=== PATIENT | female | born 1975 | race Caucasian/White ===

== ENCOUNTER 2019-12-02 19:20 | Emergency (ER) | payer OTHER, SELFPAY ==
[~2019-12-02] VITALS: Ht 157.5 cm; Wt 63.2 kg
[2019-12-02] MEDS ORDERED: PRED10TA2 (19:31)
[2019-12-02] MEDS ORDERED: DOXY100C37 (19:31)
[2019-12-02 20:16] LABS: BASO % 0.2 % (0.0-1.0); EOS % 0.1 % (0.0-3.0); HEMATOCRIT 38.6 % (36.0-47.0); HEMOGLOBIN 12.1 g/dl (12.0-15.5); LYMPH # 0.8 10^3/uL (1.5-5.0); LYMPH % 7.9 % (24.0-44.0); MEAN CORPUSCULAR HEMOGLOBIN 26.7 pg (27.0-33.0); MEAN CORPUSCULAR HGB CONC 31.3 g/dl (32.0-36.5); MEAN CORPUSCULAR VOLUME 85.2 fl (80.0-96.0); MONO # 0.3 10^3/uL (0.0-0.8); NEUTROPHILS % 88.5 % (36.0-66.0); PLATELET COUNT, AUTOMATED 428 10^3/uL (150-450); RED BLOOD COUNT 4.53 10^6/uL (4.00-5.40); WHITE BLOOD COUNT 10.1 10^3/uL (4.0-10.0)
[2019-12-02 20:37] LABS: BLOOD UREA NITROGEN 10 MG/DL (7-18); CALCIUM LEVEL 9.9 MG/DL (8.5-10.1); CARBON DIOXIDE LEVEL 27 MEQ/L (21-32); CHLORIDE LEVEL 103 MEQ/L (98-107); CREATININE FOR GFR 0.56 MG/DL (0.55-1.30); GLOMERULAR FILTRATION RATE > 60.0 (>58); GLUCOSE, FASTING 114 MG/DL (70-100); POTASSIUM SERUM 4.2 MEQ/L (3.5-5.1); SODIUM LEVEL 137 MEQ/L (136-145)
[2019-12-02 20:39] LABS: HCG, SERUM QUALITATIVE NEGATIVE (NEGATIVE)
[2019-12-02 20:41] LABS: ALBUMIN 4.6 GM/DL (3.2-5.2); BILIRUBIN,DIRECT 0.1 MG/DL (0.0-0.2); BILIRUBIN,TOTAL 0.4 MG/DL (0.2-1.0); TOTAL PROTEIN 8.3 GM/DL (6.4-8.2)
[2019-12-02 22:11] LABS: INFLUENZA A AMPLIFICATION NEGATIVE (NEGATIVE); INFLUENZA B AMPLIFICATION NEGATIVE (NEGATIVE)
[2019-12-02 22:22] VITALS: BP 139/76
[2019-12-02] MEDS ORDERED: ONDANSETRON 4 MG TAB (S0181) PO ONE ×2 (22:30)
[2019-12-02] MEDS ORDERED: CLARITHROMYCIN 250 MG TAB PO ONE (22:30)
[2019-12-02] MEDS ORDERED: ONDA4TAB6 PO (22:37)
[2019-12-02] MEDS ORDERED: CLAR500T97 PO (22:37)
== END 2019-12-02 22:45 | disposition home or self-care (01) ==
LOC: M ED 19:20
DX: H66.93 Otitis media, unspecified, bilateral (principal); F17.200 Nicotine dependence, unspecified, uncomplicated

== ENCOUNTER → 2024-09-12 | Outpatient (CLI) | payer BC ==
[~2024-09-12] MED LIST: B-1225002 SL; CLAR500T97 PO; DOXY-441; ONDA-282 PO; PRED10TA2; THERTAB52 PO
== END ==
LOC: M ONCR 14:16
PROVIDERS: ATTEND General Practice
DX: C50.411 Malignant neoplasm of upper-outer quadrant of right female breast (principal); F17.210 Nicotine dependence, cigarettes, uncomplicated; Z98.890 Other specified postprocedural states; Z88.8 Allergy status to other drugs, medicaments and biological substances

== ENCOUNTER → 2024-10-02 | Outpatient (RCR) | payer BC | LOC: M ONCR 12:03 | PROVIDERS: ATTEND General Practice | DX: Z51.0 Encounter for antineoplastic radiation therapy (principal); C50.411 Malignant neoplasm of upper-outer quadrant of right female breast ==

== ENCOUNTER → 2024-11-02 | Outpatient (RCR) | payer BC | LOC: M ONCR 10-05 08:07 | PROVIDERS: ATTEND General Practice | DX: Z51.0 Encounter for antineoplastic radiation therapy (principal) ==

== ENCOUNTER 2024-11-23 16:00 | Outpatient (RCR) | payer BC ==
[~2024-11-23 16:00] MED LIST changes: +CLOB5CR TOP
== END 2024-11-30 ==
LOC: M ONCR 16:00
PROVIDERS: ATTEND General Practice
DX: Z51.0 Encounter for antineoplastic radiation therapy (principal); C50.919 Malignant neoplasm of unspecified site of unspecified female breast

== ENCOUNTER → 2024-12-07 | Outpatient (CLI) | payer BC | LOC: M ONCR 15:09 | PROVIDERS: ATTEND General Practice | DX: L59.8 Other specified disorders of the skin and subcutaneous tissue related to radiation (principal); Z92.3 Personal history of irradiation ==